=== PATIENT | female | born 1980 | race Caucasian/White ===

== ENCOUNTER 2024-01-10 03:36 | Emergency (ER) | payer OTHER, SELFPAY ==
[2024-01-10 03:45] VITALS: BP 156/86; PULSE 98; RESP 15; TEMP 36.6; O2SAT 100
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
[2024-01-10 04:53] VITALS: BP 150/84; PULSE 96; RESP 15; O2SAT 100
== END 2024-01-10 04:54 | disposition home or self-care (01) ==
PROVIDERS: Emergency Provider Emergency Medicine; PCP Family Medicine
DX: F43.9 Reaction to severe stress, unspecified (principal); M79.7 Fibromyalgia; F51.01 Primary insomnia; F32.9 Major depressive disorder, single episode, unspecified; Z87.891 Personal history of nicotine dependence
CPT/HCPCS: 99281

== ENCOUNTER 2024-01-11 14:10 | Outpatient (CLI) | payer OTHER, SELFPAY ==
[2024-01-11 19:15] LABS: Mean Corpuscular HGB Conc 31.8 g/dl (32-36); Mean Corpuscular Hemoglobin 30.6 pg (26-34); Mean Corpuscular Volume 96.3 fl (80-100); Mean Platelet Volume 10.8 fl (7.4-10.4); Platelet Count Result 374 k/mm3 (150-375); Red Blood Count 4.57 M/mm3 (4.2-5.4); Red Cell Distribution Width 12.7 % (11.5-14.5); White Blood Count 10.3 K/mm3 (4.5-10.0)
[2024-01-11 19:21] LABS: Vitamin D 25 Hydroxy 18.4 ng/mL
[2024-01-11 19:24] LABS: Alanine Aminotransferase 23 U/L (6-35); Albumin Level 4.3 g/dL (3.5-5.1); Alkaline Phosphatase 72 U/L (38-126); Anion Gap 4 mmol/L (8-16); Aspartate Amino Transferase 53 U/L (14-36); Blood Urea Nitrogen 11 mg/dL (7-17); Calcium 9.4 mg/dL (8.4-10.2); Carbon Dioxide 30 mmol/L (22-30); Chloride 105 mmol/L (98-107); Cholesterol 202 mg/dL (0-200); Estimated Glomerular Filt Rate > 60; Glucose 88 mg/dL (65-110); HDL Direct 63 mg/dL; Sodium 139 mmol/L (137-145); Triglycerides 113 mg/dL (<150)
[2024-01-11 19:34] LABS: LDL Cholesterol Direct 109 mg/dL
== END 2024-01-11 14:11 | disposition home or self-care (01) ==
LOC: ANHGOSHLAB 14:12
PROVIDERS: Family Medicine; PCP Family Medicine; Visit Provider Nurse Practitioner
DX: Z00.00 Encounter for general adult medical examination without abnormal findings (principal); F41.8 Other specified anxiety disorders; G25.81 Restless legs syndrome; E66.01 Morbid (severe) obesity due to excess calories; Z79.899 Other long term (current) drug therapy; D64.9 Anemia, unspecified
CPT/HCPCS: 36415; 80053; 80061; 82306; 82728; 84443; 85027

== ENCOUNTER 2024-03-05 07:46 | Outpatient (CLI) | payer OTHER, SELFPAY ==
--- NOTE | 2024-03-06 11:11 | WPDNEUROLOGY ---
Neurology EEG Report General Information Date of Study: 03/05/24 TEST eeg DIAGNOSIS Unspecified convulsions CONDITION OF RECORDING awake drowsy and sleep EEG NUMBER [id number] CLINICAL HISTORY patient reports in the last 2 months she has had 3 episodes of becoming aphasic and shaking of her extremities. Episodes last for about a minute and half. Denies loss of consciousness. Has bit her tongue during the last episode. EEG DESCRIPTION Low-voltage 15 to 18 hertz per 2nd beta activity seen during drowsiness with poor rohini posterior gradient and involving into the mixture of low-voltage beta theta and Alpha activity during sleep. Bilateral symmetrical sleep activity is noted. With intermittent regular EKG artifact. Hyperventilation produced normal and symmetrical buildup. Photic stimulation produced normal drive. Non paroxysmal. Nonfocal. Nonlateralizing. IMPRESSION Normal EEG at this time with no evidence of any paroxysmal abnormalities, clinical correlation recommended as the EEG can be normal even if the patient has seizure disorder,.
== END 2024-03-05 07:47 | disposition home or self-care (01) ==
PROVIDERS: PCP Family Medicine; Visit Provider Nurse Practitioner
DX: R56.9 Unspecified convulsions (principal)
CPT/HCPCS: 95816

== ENCOUNTER 2024-05-09 12:29 | Outpatient (CLI) | payer OTHER, SELFPAY ==
--- NOTE | ~2024-05-09 | MR_ITS ---
MR brain/brain stem wo/w con Ordering provider: Tato Santizo MD History: 43 years Female with . G35 - Multiple sclerosis . Comparison: CT head performed yesterday. Technique: MRI brain was performed with and without contrast. 20 mL of MultiHance was given IV. FINDINGS: BONES: Normal. CRANIOCERVICAL JUNCTION: normal. PITUITARY: Normal. MAJOR INTRACRANIAL VESSELS: Normal flow void. OPTIC NERVES AND CRANIAL NERVES VII AND VIII COMPLEXES: Grossly normal. BRAIN PARENCHYMA AND CSF SPACES: No visible white matter disease. The brainstem and cerebellum are n ormal. No acute or chronic intracranial hemorrhage. No extra axial fluid collections. Diffusion weigh chetan and ADC mapping images reveal no recent ischemia. No midline shift or mass effect. No abnormal co ntrast enhancement. PARANASAL SINUSES: Normal. MASTOIDS: Normal SUPERFICIAL/SURROUNDING SOFT TISSUES: Normal. IMPRESSION: 1. Normal study. 2. No abnormal enhancement. Reviewed, dictated and finalized at location A.
== END 2024-05-09 12:30 | disposition home or self-care (01) ==
LOC: ANHIMG 12:31
PROVIDERS: PCP Family Medicine; Visit Provider Psychiatry & Neurology Neurology
DX: G35 Multiple sclerosis (principal); G40.909 Epilepsy, unspecified, not intractable, without status epilepticus; G43.909 Migraine, unspecified, not intractable, without status migrainosus
CPT/HCPCS: 70553; 93225; 93226; A9577

== ENCOUNTER 2024-12-13 08:58 | Outpatient (CLI) | payer OTHER, SELFPAY ==
--- OUTSIDE RECORDS SUMMARY | 2024-12-13 09:24 | XMS_ITS | Clinical Summary ---
Author Organization [facility] Address [address] [place] [address]. [place], [place] [id number] [place] [id number] Care Team Providers Care Venereal Disease Control Head Name Role Phone None, Provider MD Primary Care Provider Unavaila ble Allergies No known active allergies Medications gabapentin (NEURONTIN) 600 MG tablet Take 1 tablet (600 mg total) by mouth daily. 12/14/2023 Active Social History Tobacco Use Types Packs/Day Years Used Date Smoking Tobacco: Never Smokeless Tobacco: Never Tobacco Cessation:Counseling Given: Not Answered Alcohol Use Standard Drinks/Week Comments Yes 0 (1 standard drink = 0.6 oz pur e alcohol) Comments No Sex and Gender Information Value Date Recorded Sex Assigned at Not on file Legal Sex Female 7:45 AM CLINICAL NURSE [facility]UP[facility]IC[facility] Gender Identity Not on file Sexual Orientation Not on file Last Filed Vital Signs Vital Sign Reading Time Taken Comments Blood Pressure 133/76 01/03/2024 9:00 AM CLINICAL NURSE [facility]CCUPATIONAL MEDICINE Pulse 71 01/03/2024 9:00 AM CLINICAL NURSE OCCUPATIONAL MEDICINE Temperature 36.1 ??C (96.9 ??F) 01/03/2024 7:53 AM CS T Respiratory Rate 23 01/03/2024 9:00 AM CLINICAL NURSE [employer]CCUPATIONAL MEDICINE Oxygen Saturation 94% 01/03/2024 9:00 AM CLINICAL NURSE OCCUPATIONAL MEDICINE Inhaled Oxygen Concentration - - Weight 128 kg (282 lb 2 oz) 01/03/2024 7:[address] Height 172.7 cm (5' 8 ) 01/03/2024 7:53 AM CLINICAL NURSE OCCUPATIONAL MEDICINE Body Mass Index 42.9 01/03/2024 7:53 AM CLINICAL NURSE OCCUPATIONAL MEDICINE Plan of Treatment Health Maintenance Due Date Last Done Comments Cervical Cancer Screening Pa p Smear (Age 30 to 64) Every 3 Years 1981 Annual Physical 1984 Hepatitis C 1999 DTaP, Tdap and Td Vaccines ( 1 - Tdap) 2000 Hepatitis B Vaccines (1 of 3 - 19+ 3-dose series) 2000 Cervical Cancer Screening Pa p with HPV Testing (Age 30 to 64) Every 5 Years 2011 Cervical Cancer Screening with HPV 2011 Mammogram Screening 2021 COVID-19 Vaccine (1 - 2023-2 5 season) 2024 Influenza Adult (#1) 2024 HPV Vaccines Aged Out No longer eligi ble based on patient's age to complete this topic Meningococcal B Vaccine Aged Out No l onger eligible based on patient's age to complete this topic Meningococcal Vaccine Aged Out No teressa scotty eligible based on patient's age to complete this topic Pneumococcal Vaccine: Pediat rics (0 to 5 Years) and At-Risk Patients (6 to 64 Years) Aged Out No longer eligible b ased on patient's age to complete this topic RSV Immunizations Under 20 Months Aged Out No longer eligible based on patient's age to complete this topic Insurance Care Teams Venereal Disease Control Head Relationship Specialty Start Date End Date None, Provider, MD PCP - General UNKNOWN PHYSICIAN SPECIALTY 01/03/24
[2024-12-13 16:26] LABS: Hemoglobin 14.5 g/dL (12.0-15.0); Mean Corpuscular Volume 94.2 fl (80-100); Mean Platelet Volume 10.7 fl (7.4-10.4); Platelet Count Result 320 k/mm3 (150-375); Red Blood Count 4.67 M/mm3 (4.2-5.4); Red Cell Distribution Width 12.5 % (11.5-14.5); White Blood Count 8.1 K/mm3 (4.5-10.0)
[2024-12-13 17:06] LABS: Vitamin D 25 Hydroxy 28.9 ng/mL
[2024-12-13 17:14] LABS: Alanine Aminotransferase 17 U/L (6-35); Albumin Level 4.2 g/dL (3.5-5.1); Alkaline Phosphatase 58 U/L (38-126); Anion Gap 10 mmol/L (4-12); Aspartate Amino Transferase 26 U/L (14-36); Bilirubin,Total 0.7 mg/dL (0.2-1.3); Blood Urea Nitrogen 10 mg/dL (7-17); Carbon Dioxide 25 mmol/L (22-30); Chloride 103 mmol/L (98-107); Cholesterol 196 mg/dL (0-200); Estimated Glomerular Filt Rate > 60; Glucose 81 mg/dL (65-110); HDL Direct 63 mg/dL; Potassium 4.5 mmol/L (3.4-5.0); Sodium 138 mmol/L (137-145); Triglycerides 177 mg/dL (<150)
[2024-12-13 17:18] LABS: LDL Cholesterol Direct 106 mg/dL
== END 2024-12-13 08:59 | disposition home or self-care (01) ==
LOC: ANHGOSHLAB 08:59
PROVIDERS: PCP Family Medicine; Visit Provider Nurse Practitioner
DX: Z00.00 Encounter for general adult medical examination without abnormal findings (principal); E55.9 Vitamin D deficiency, unspecified
CPT/HCPCS: 36415; 80053; 80061; 82306; 84443; 85027

== ENCOUNTER 2025-02-06 07:33 | Outpatient (CLI) | payer OTHER, SELFPAY ==
--- OUTSIDE RECORDS SUMMARY | 2025-02-06 07:39 | XMS_ITS ---
Author Organization [facility] qLearning Address [address] [facility] [address] [place] [address] Care Team Providers Care Pastry Artist Name Role Phone Quita Zee Primary Care Provider Angie Villatoro Unavailable [phone] Allergies Allergen (clinical drug ingredient) Drug/Non Drug Allergy documented on EMR Reaction Allergy Type Onset Date Status venlafaxine Venlafaxine Unknown Drug Allergy Act zee REASON FOR VISIT 6 week f/u, Depression screening positive Medications Medication SIG (Take, Route, Frequency, Duration) Notes Start Date End Date Status levETIRAcetam 750 MG TAKE 2 TABLETS BY MOUTH EVERY 12 HOURS Oral for 60 Days Active Trintellix 10 MG 1 tablet Orally Once a day for 30 days dose increase, cancel 5mg scripts Active traZODone HCl 50 MG 1-2 tablet at bedtime as needed Oral Once a day for 90 days Active Gabapentin 600 MG TAKE 1 TABLET BY MOUTH EVERY DAY AT BEDTIME Oral for 90 Days Active Omeprazole 10 MG TAKE 1 CAPSULE BY MOUTH ONCE DAILY Oral for 90 Days Active Social History Tobacco Use: Social History Observation Description Date Details (start date - stop date) Former Smoker NA - NA Sex Assigned At : Social History Observation Description Sex Assigned At Female Tobacco Control (Standard) Question Answer Notes Tobacco use: Former smoker AUDIT-C (Standard) Question Answer Notes Points 5 Did you have a drink contain ing alcohol in the past year? Yes How often did you have six o r more drinks on one occasion in the past year? Less than monthly (1 point) How many drinks did you have on a typical day when you were drinking in the past year? 5 or 6 drinks (2 points) How often did you have a dri nk containing alcohol in the past year? 2 to 4 times a month (2 points) Vital Signs Blood pressure systolic 134 mm Hg 01/26/20 25 Blood pressure diastolic 81 mm Hg 025 Heart Rate 71 /min 01/25/2025 Weight 264 lbs 01/25/2025 Weight-kg 119.75 kg 01/25/2025 Encounters Encounter Location Date Provider Diagnosis [facility] [address] [facility] [address] [place] [address] 01/25/2025 Angie Umanzor Encounter for screen ing for depression Z13.31 ; Severe episode of recurrent major depressive disorder, without psychotic features F33.2 ; Generalized anxiety disorder F41.1 ; Chronic insomnia F51.04 and Encounter for screening for cardiovascular disorders Z13.6 Assessments Encounter Date Diagnosis (ICD Code) Assessment Notes Treatment Notes Treatment Clinical Notes Section Notes 01/25/2025 Encounter for screening for depression (ICD-10 - Z13.31) 01/25/2025 Severe episode of recurrent major depressive disorder, without psychotic features (ICD-10 - F33.2) Electronic Prior Authorization was requested for Trintellix 5 MG Tablet. Provider can order medication once approval received. 01/25/2025 Generalized anxiety disorder (ICD-10 - F41.1) 01/25/2025 Chronic insomnia (ICD-10 - F51.04) 01/25/2025 Encounter for screening for cardiovascular disorders (ICD-10 - Z13.6) 01/25/2025 Other Increase Trintellix to 10mg daily --monitor for worsening side effects -samples and copay card given Patient educated on all medications including potential benefits, side effects, risks. Educated on proper dosing schedule and importance of compliance. -Assessment and treatment plan reviewed with patient. -Compliance with treatment plan importance discussed. -Discussed the risks/benefits of this medication -Discussed medication side effects. -Contact office if symptoms worsen. -Discussed that it can take up to 6-8 weeks to see full therapeutic effects of psychotropic medications. -Crisis prevention hotline 236. Plan Of Treatment Medication Medication Name Sig Start Date Stop Date Notes Trintellix 10 MG 1 tablet Orally Once a day for 30 days dose increase, cance l 5mg scripts traZODone HCl 50 MG 1-2 tablet at bedtim e as needed Oral Once a day for 90 days Treatment Notes Assessment Notes Severe episode of recurrent major depressive disorder, without psychotic features Electronic Prior Authorization was reque bakari for Trintellix 5 MG Tablet. Provider can order medication once approval received. Other Increase Trintellix to 10mg daily --monitor for worsening side effects -samples and copay card given Patient educated on all medications including potential benefits, side effects, risks. Educated on proper dosing schedule and importance of compliance. Next Appt Details Follow Up: 6 Weeks, Reason: med f/u Provider Name:Angie Umanzor, 02/21/2025 10:45:00 AM, [address], [facility] [address], [place], [address], Progress Notes * Nila ANDERSON LDOB:1979 (44 yo F)Acc No.[id number]:01/25/2025 Patient: Roseanne PARHAMWILLOWNila Jones Provider: STU MASONHNP :1980 A ge:44 Y S ex:Female Date:01/25/2025 Address:[address] [place], [place] [id number] Pcp:Quita Jones [facility] Subjective: * Chief Complaints: * 6 week f/uDepression screening positive * HPI: D epression Screening: MAURY-7 (2018 Edition) F eeling nervous, anxious, or on edge S everal N ot being able to stop or control worrying?Not at all W orrying too much about different things S ever T rouble relaxing N ot at all B eing so restless that it is hard to sit still N ot at all B ecoming easily annoyed or irritable S ever F eeling afraid as if something awful might happen S ever I f you checked any problems, how difficult have they made it for you to do your work, take care of things at home, or get along with other people? S omewhat difficult C [place]-Suicide Severity Rating Scale: Suicide Risk (CSRS-screener) i n the past one month Have you wished you were or wished you could go to sleep and not wake up? N o i n the past one month Have you actually had any thoughts of killing yourself? N o D epression screening: PHQ-9 L ittle interest or pleasure in doing things?Several days F eeling down, depressed, or hopeless S everal T rouble falling or staying asleep, or sleeping too much N ot at all F eeling tired or having little energy S ever days P oor appetite or overeating S ever F eeling bad about yourself or that you are a failure, or have let yourself or your family down S ever T rouble concentrating on things, such as reading the newspaper or watching television S M oving or speaking so slowly that other people could have noticed; or the opposite, being so fidgety or restless that you have been moving around a lot more than usual N ot at all T houghts that you would be better off or of hurting yourself in some way N ot at all T otal Score 6 I nterpretation M ild Depression H istory of Presenting Problem: Medication Side Effects I rregular menstrual cycles; nausea. Anxiety w ith excessive worry, with low energy, which has been long-standing. Depression R ates depression 3/10 with 10 being most severe. Denies SI. . Mood lability n o hx gary. Psychosis n o hx psychosis. Sleep disturbance w ith difficulty falling asleep. Suicidal ideation d enies. Psychotherapy h istory of counseling several years ago . Here for follow up. Trintellix started last apt. Reports I feel a little better . Has noted some nausea and irregular periods since starting the Trintellix. Has not thrown up and noted that eating with the medicine is helpful, nausea is lasting about 20 minutes. Depression is significantly better since starting the Trintellix. Anxiety is slightly better-although continues to overthink the future often. Work is going well, I feel like I have had a better attitude . Feels she is handling the stress well. Sleep is good, some nights she is taking up to 75mg of the Trazodone, getting about 7 hours nightly. Energy is fair. Appetite is good. P ast Psychiatric Hospitalizations: Previous psychiatric hospitalizations P revious Psychiatric Hospitalization N o Past History of Suicidal attempt H ave you ever attempted suicide in the past?No Social hx: . No children. Has 5 pugs. 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 Medical hx: Seizures (keppra) Legal hx: none Past psychiatric hx- Hx ECT/TMS/esketamine: none Past IPBH admissions/IOP/PHP: none Previous suicide attempts: none Previous self-harming: none Previous medications: Venlafaxine, duloxetine, fluoxetine, paxil, sertraline, lexapro, wellbutrin, Viibryd (did well but insurance did not cover). Supplements: B6, B12 Trauma/Abuse: none Substance use hx: denies Nicotine: vape, previous smoker 2014 Alcohol: once weekly- about 6 beer. * ROS: G eneral / Constitutional: Patient denies c hange in appetite, headache, lightheadedness, sleep disturbance, weight gain, weight loss. C ardiovascular: Patient denies p alpitations. G astrointestinal: Patient denies vomiting, constipation. P atient complains of n ausea. N eurologic: Patient denies c onfusion, tic, tremor. P sychiatric: Patient denies a uditory / visual hallucinations, delusions, suicidal thoughts, gary, psychosis, involuntary movements. P atient complains of a nxiety, depressed mood. C nisha Galvin [facility] for details. P erformance Met: N ormal blood pressure reading documented, follow-up not required ( G8783). * Medical History: * Surgical History: * Hospitalization/Major Diagno stic Procedure: n o hx IP admits * Family History: M aternal Uncle: drug use. F ather: alive, None. M aternal Aunt: None. P aternal Aunt: None. P aternal Uncle: None. M other: alive, None. P aternal Grandfather: None. Paternal Grandmother: None. M aternal Grandfather: None. M aternal Grandmother: None. B rother: None. S ister: Anxiety Disorder,Phobias,Major Depressive Episode. S on: None. D aughter: None. 2 sister(s) . . 2 sisters, biological, living. * Social History: T obacco Use: T obacco Control (Standard) T obacco use: F ormer smoker D rug/Alcohol: D rugs H ave you used drugs other than those for medical reasons in the past 12 months? Y es M ethamphetamine? N o C rack? N o L SD? N o E cstacy? N o P rescription opiates? N o M arijuana? Y es K etamine? N o P CP? N o I s there a minor (18 years or younger) at risk at home? N o A re you still using? N o Do you smoke marijuana?: Denies. Do you drink alcohol?: Yes. AUDIT-C (Standard) D id you have a drink containing alcohol in the past year? Y es H ow often did you have six or more drinks on one occasion in the past year? L ess than monthly (1 point) H ow many drinks did you have on a typical day when you were drinking in the past year? 5 or 6 drinks (2 points) H ow often did you have a drink containing alcohol in the past year? 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 Safety issues A re there any firearms in the house? N o S ocial History: H ousejeremy M arital Status: M arried N umber of Adults in household: 2 N umber of Children in Household: 0 L evel of Education: [employer] * Medications: T akinglevETIRAcetam 750 MG Tablet TAKE 2 TABLETS BY MOUTH EVERY 12 HOURS Oral Gabapentin 600 MG Tablet TAKE 1 TABLET BY MOUTH EVERY DAY AT BEDTIME Oral Omeprazole 10 MG Capsule Delayed Release TAKE 1 CAPSULE BY MOUTH ONCE DAILY Oral Trintellix 5 MG Tablet 1 tablet Orally Once a day traZODone HCl 50 MG Tablet 1-2 tablet at bedtime as needed Oral Once a day Taking levETIRAcetam 750 MG Tablet TAKE 2 TABLETS BY MOUTH EVERY 12 HOURS Oral Taking Gabapentin 600 MG Tablet TAKE 1 TABLET BY MOUTH EVERY DAY AT BEDTIME Oral Taking Omeprazole 10 MG Capsule Delayed Release TAKE 1 CAPSULE BY MOUTH ONCE DAILY Oral Taking Trintellix 5 MG Tablet 1 tablet Orally Once a day Taking traZODone HCl 50 MG Tablet 1-2 tablet at bedtime as needed Oral Once a day * Allergies: V enlafaxineno[Allergies Verified] Objective: * Vitals: B P:134/81mm Hg, HR:71/min, Wt:264lbs, Wt-k.75 kg. * Examination: P sychiatry: Appearance: w ell-groomed. Abnormal body movements: n one. Affect / mood: a ppropriate. Attention: g ood. Attitude: c ooperative. Homicidal ideation: n one. Suicidal ideation: n one. Degree of awareness of surroundings: w ithin normal limits.? Delusions: n o. Hallucinations: n o. Insight: g ood. Judgement: g ood. Orientation: a wake, alert and oriented x 3. Perceptual disorders: n o perceptual disorder noted. Psychomotor activity: w ithin normal range. Speech / language: n ormal rate, volume, and articulation (RVR), clear and coherent, appropriate pitch/modulation. Thought content: a ppropriate. Thought process: i ntact. Assessment: * Assessment: 1. S evere episode of recurrent major depressive disorder, without psychotic features - F33.2 (Primary) 2 . E ncounter for screening for depression - Z13.31 3 . G eneralized anxiety disorder - F41.1 4 . C hronic insomnia - F51.04 & #160; 5 . E ncounter for screening for cardiovascular disorders - Z13.6 Plan: * Treatment: 2. C hronic insomnia Continue traZODone HCl Tablet, 50 MG, 1-2 tablet at bedtime as needed, Oral, Once a day, 90 days, 180, Refills 0. 3. O thers Notes: Increase Trintellix to 10mg daily --monitor for worsening side effects -samples and copay card given Patient educated on all medications including potential benefits, side effects, risks. Educated on proper dosing schedule and importance of compliance. Clinical Notes: -Assessment and treatment plan reviewed with patient. -Compliance with treatment plan importance discussed. -Discussed the risks/benefits of this medication -Discussed medication side effects. -Contact office if symptoms worsen. -Discussed that it can take up to 6-8 weeks to see full therapeutic effects of psychotropic medications. -Crisis prevention hotline 825. * Procedure Codes: 9 6127 BEHAV ASSMT W/SCORE & DOCD/STAND [id number] NORMAL BP READING DOC F/U NOT [id number] CLIN DEPRESSION SCREEN [id number] MOST RECENT SYSTOLIC BP < 140MM [id number] MOST RECENT DIASTOLIC BP < 90MM [id number] VISIT COMPLEXITY INHERENT TO ONGOING CARE RELATED TO A PATIENT'S SINGLE, SERIOUS CONDITION OR A COMPLEX CONDITION * Follow Up: 6 Weeks (Reason: med f/u) * Billing Information: * Visit Code: 14773 OFFICE OUTPATIENT VISIT 25 MINUTES DETAILED HISTORY AND EXAM/MODERATE MEDICAL DECISION MAKING. * Procedure Codes: 57667 BEHAV ASSMT W/SCORE & DOCD/STAND INSTRUMENT. G8783 NORMAL BP READING DOC F/U NOT RQR. G8431 CLIN DEPRESSION SCREEN DOC. G8752 MOST RECENT SYSTOLIC BP < 140MM HG. G8754 MOST RECENT DIASTOLIC BP < 90MM HG. G2211 VISIT COMPLEXITY INHERENT TO ONGOING CARE RELATED TO A PATIENT'S SINGLE, SERIOUS CONDITION OR A COMPLEX CONDITION. * Sign off status: Completed true * Provider: ATLI MASON Date: 0 01/25/2025 Generated for Dg zapata/Sofi/Lara on: 0 02/06/2025 07:39 AM CDT History and Physical Notes * HPI (History of Present Illness) Category Sub-Category Detail Notes Category Not es History of Presenting Problem Anxiety with excessive worry, with l ow energy, which has been long-standing Here for follow up. Trintellix started last apt. Reports I feel a little better . Has noted some nausea and irregular periods since starting the Trintellix. Has not thrown up and noted that eating with the medicine is helpful, nausea is lasting about 20 minutes. Depression is significantly better since starting the Trintellix. Anxiety is slightly better-although continues to overthink the future often. Work is going well, I feel like I have had a better attitude . Feels she is handling the stress well. Sleep is good, some nights she is taking up to 75mg of the Trazodone, getting about 7 hours nightly. Energy is fair. Appetite is good. Depression Rates depression 3 0 with 10 being most severe. Denies SI. Suicidal ideation denies Sleep disturbance with difficulty fall ing asleep Psychosis no hx psychosis Mood lability no hx gary Psychotherapy history of jayde murdock several years ago Medication Side Effects Irregular menstr ual cycles; nausea Past Psychiatric Hospitalizations Previous psychiatric hospitalizations Previous Psychiatric Hospitalization: No Social hx: . No children. Has 5 pugs. 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 Medical hx: Seizures (keppra) Legal hx: none Past psychiatric hx- Hx ECT/TMS/esketamine: none Past IPBH admissions/IOP/PHP: none Previous suicide attempts: none Previous self-harming: none Previous medications: Venlafaxine, duloxetine, fluoxetine, paxil, sertraline, lexapro, wellbutrin, Viibryd (did well but insurance did not cover). Supplements: B6, B12 Trauma/Abuse: none Substance use hx: denies Nicotine: vape, previous smoker 2014 Alcohol: once weekly- about 6 beer Past History of Suicidal attempt Have yo u ever attempted suicide in the past: No Depression screening PHQ-9 Little inte rest or pleasure in doing things: Several days Feeling down, depressed, or hopeless: Se veral days Trouble falling or staying asleep, or sl eeping too much: Not at all Feeling tired or having little energy: S everal days Poor appetite or overeating: Several day s Feeling bad about yourself o r that you are a failure, or have let yourself or your family down: Several days Trouble concentrating on thi ngs, such as reading the newspaper or watching television: Several days Moving or speaking so slowly that other people could have noticed; or the opposite, being so fidgety or restless that you have been moving around a lot more than usual: Not at all Thoughts that you would be b be off or of hurting yourself in some way: Not at all Total Score: 6 Interpretation: Mild Depression Depression Screening MAURY-7 (2018 Edition) Feelin g nervous, anxious, or on edge: Several days Not being able to stop or control worryi ng: Not at all Worrying too much about different things : Several days Trouble relaxing: Not at all Being so restless that it is hard to sit still: Not at all Becoming easily annoyed or irritable: Se veral days Feeling afraid as if something awful lili ht happen: Several days If you checked any problems, how difficult have they made it for you to do your work, take care of things at home, or get along with other people?: Somewhat difficult [place]-Suicide Severity Rating Scale Suicide Risk (CSRS-screener) in the past one month Have you wished you were or wished you could go to sleep and not wake up?: No in the past one month Have y ou actually had any thoughts of killing yourself?: No Examination Category Sub-Category Detail Notes Category Not es Psychiatry Appearance: well-groomed Attitude: cooperative Psychomotor activity: within normal rang e Abnormal body movements: none Attention: good Degree of awareness of surroundings: wit hin normal limits Orientation: awake, alert and linda ented x 3 Affect / mood: appropriate Speech / language: normal rate, volume, and articulation (RVR), clear and coherent, appropriate pitch/modulation Insight: good Judgement: good Thought process: intact Thought content: appropriate Perceptual disorders: no perceptual diso rder noted Suicidal ideation: none Homicidal ideation: none Delusions: no Hallucinations: no
--- OUTSIDE RECORDS SUMMARY | 2025-02-06 07:40 | XMS_ITS | Patient Health Record ---
Author Organization [facility] [employer] [facility] Address [address] [facility] [address] [place] [address] Care Team Providers Care Phlebotomy Instructor Name Role Phone Quita Zee Primary Care Provider Angie Villatoro Unavailable [phone] Allergies Allergen (clinical drug ingredient) Drug/Non Drug Allergy documented on EMR Reaction Allergy Type Onset Date Status venlafaxine Venlafaxine Unknown Drug Allergy Act zee Results Component Value Reference Range Notes UDT Reviewed date:12/14/2024 11:01:15 AM Interpretation: Performing Lab: Notes/Report: THC NEG 0 - 50 ng/ml Cocaine NEG 0 - 300 ng/ml Amphetamine NEG 0 - 1000 ng/ml Buprenorphine (BUP) NEG 0 - 10 ng/ml Secobarbital (Bar) NEG 0 - 300 ng/ml Oxazepam (BZO) NEG 0 - 300 ng/ml 9-gjvdwbcvyf-9,6-mzzevbrq-2,3-diphenylpyrrolidine (MEI P) NEG 0 - 300 ng/ml Methamphetamine (MET) NEG 0 - 1000 ng/ml Methylenedioxymethamphetamine (MDMA) NEG 0 - 500 ng/ml Morphine (MOP 300/[id number]) NEG 0 - 300 ng/ml Methadone (MTD) NEG 0 - 300 ng/ml Phencyclidine (PCP) NEG 0 - 25 ng/ml Nortriptyline (TCA) NEG 0 - 1000 ng/ml Oxycodone NEG 0 - 300 ng/ml x NEG 0 - 300 ng/ml Reason For Referral No Information Medications Medication SIG (Take, Route, Frequency, Duration) [...] to 4 times a month (2 points) Problems Problem Type SNOMED Code ICD Code Onset Dates Problem Status W/U Status Risk Notes Problem Generalized anxiety disorder (76583001) Generalized anxiety disorder (F41.1) Active confirmed Problem Severe recurrent major depression without psychotic features (19678153) Severe episode of recurrent major depressive disorder, without psychotic features (F33.2) Active confirmed Problem Chronic insomnia (642173329) Chronic insomnia (F51.04) Active confirmed Vital Signs Heart Rate 71 /min 01/25/2025 Blood pressure diastolic 81 mm Hg 01/25/2025 Weight-kg 119.75 kg 01/25/2025 Blood pressure systolic 134 mm Hg 01/25/2025 Weight 264 lbs 01/25/2025 Encounters Encounter Location Date Provider Diagnosis [facility] [address] [place] [address] 12/14/2024 Angie Umanzor Severe episode of recurrent major depressive disorder, without psychotic features F33.2 ; Generalized anxiety disorder F41.1 and Chronic insomnia F51.04 [facility] [address] [place] [address] 01/25/2025 Angie Umanzor Encounter for screen ing for depression Z13.31 ; Severe episode of recurrent major depressive disorder, without psychotic features F33.2 ; Generalized anxiety disorder F41.1 ; Chronic insomnia F51.04 and Encounter for screening for cardiovascular disorders Z13.6 [facility] [address] [place] [address] 01/25/2025 Angie Umanzor Assessments Encounter Date Diagnosis (ICD Code) Assessment Notes Treatment Notes Treatment Clinical Notes Section Notes 12/14/2024 Severe episode of recurrent major depressive disorder, without psychotic features (ICD-10 - F33.2) Electronic Prior Authorization was requested for Trintellix 5 MG Tablet. Provider can order medication once approval received. 01/25/2025 Encounter for screening for depression (ICD-10 - Z13.31) 12/14/2024 Generalized anxiety disorder (ICD-10 - F41.1) 01/25/2025 Severe episode of recurrent major depressive disorder, without psychotic features (ICD-10 - F33.2) Electronic Prior Authorization was requested for Trintellix 5 MG Tablet. Provider can order medication once approval received. 12/14/2024 Chronic insomnia (ICD-10 - F51.04) 01/25/2025 Generalized anxiety disorder (ICD-10 - F41.1) 01/25/2025 Chronic insomnia (ICD-10 - F51.04) 01/25/2025 Encounter for screening for cardiovascular disorders (ICD-10 - Z13.6) 12/14/2024 Other Start Trintellix 5mg daily for mood, anxiety. Increase Trazodone to 50-100mg qHS PRN for sleep. Patient educated on all medications including potential benefits, side effects, risks. Educated on proper dosing schedule and importance of compliance. Offered counseling, pt declined at this time. 01/25/2025 Other Increase Trintellix to 10mg daily [...] effects of psychotropic medications. -Crisis prevention hotline 998. Plan Of Treatment Next Appt Details Provider Name:Angie Umanzor, 02/21/2025 10:45:00 AM, [address], [facility] [address], [place], [address], Insurance Providers Payer Name Payer Address Payer Phone Subscriber Number Group Number Insured Name Patient Relationship to Insured Coverage Start Date Coverage End Date Umr [address] [address] [place] [address] [id number] Nila Anderson Self - patient is the insured Pending Sale To [facility] Benefit Plan Management [address] [place] [phone] [id number] Nila Anderson Self - patient is the insured Medical (General) History Medical History History ICD Code Dizziness Fibromyalgia MDDR Migraine syndrome Primary insomnia Seizure disorder Past Psychiatric History: Anxiety Disord er,Major Depressive Episode abdominal aortic aneurysm: No atrial fibrillation: No chronic fatigue syndrome: No essential tremor: No hyperlipidemia: Yes hypertension: No Parkinson's disease: No restless leg syndrome: Yes stroke: No subdural hematoma: No type 1 diabetes mellitus: No type 2 diabetes mellitus: No vitamin B12 deficiency: Yes vitamin D deficiency: Yes Hospitalization History Reason Date(Month/Year) no [facility] admits
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
--- OUTSIDE RECORDS SUMMARY | 2025-02-06 07:40 | XMS_ITS | Clinical Summary ---
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 Gender Identity Not on file Sexual Orientation Not on file Last Filed Vital Signs Vital Sign Reading Time Taken Comments Blood Pressure 133/76 01/03/2024 9:00 AM JUVENILE OFFICER Pulse 71 01/03/2024 9:00 AM JUVENILE OFFICER Temperature 36.1 C (96.9 F) 01/03/2024 7:53 AM JUVENILE OFFICER Respiratory Rate 23 01/03/2024 9:00 AM JUVENILE OFFICER Oxygen Saturation 94% 01/03/2024 9:00 AM JUVENILE OFFICER Inhaled Oxygen Concentration - - Weight 128 kg (282 lb 2 oz) 01/03/2024 7:[address] Height 172.7 cm (5' 8 ) 01/03/2024 7:53 AM JUVENILE OFFICER Body Mass Index 42.9 01/03/2024 7:53 AM JUVENILE OFFICER Plan of Treatment Health Maintenance Due Date [...] to complete this topic Insurance Care Teams Special Needs Nanny Relationship Specialty Start Date End Date None, Provider, MD PCP - General UNKNOWN PHYSICIAN SPECIALTY 01/03/24
--- OUTSIDE RECORDS SUMMARY | 2025-02-06 07:40 | XMS_ITS ---
Author Organization [facility] [employer] [facility] Address [facility] [address] [address] Care Team Providers Care Fiberglass Fabricator Name Role Phone Quita Zee Primary Care Provider Angie Villatoro Unavailable [phone] Social History Sex Assigned At : Social History Observation Description Sex Assigned At Female Encounters Encounter Location Date Provider Diagnosis [facility] [employer] [place] [id number] [facility] [address] [address] 01/25/2025 Angie Umanzor Plan Of Treatment Next Appt Details Provider Name:Angie Umanzor, 02/21/2025 10:45:00 AM, [address], [address], [address], Progress Notes * Nila ANDERSON LDOB:1979 (44 yo F)Acc No.[id number]:01/25/2025 Patient: Shiloh POLLARDdustin Jansen :1980 A ge:44 Y S ex:Female Address:[address] [place] [address], [id number] * true * Date: Generated for Printi ng/Faxing/eTransmitting on: 0 02/06/2025 07:39 AM CDT
--- NOTE | 2025-02-06 07:43 | ECHO_ITS ---
Patient Info Name: Nila Anderson Age: 44 years : 1980 Gender: Female Ht: 68 in Wt: 260 lbs BSA: 2.43 m2 HR: 53 bpm Technical Quality: Good Exam Date: 02/06/2025 8:10 AM Exam Location: Echo Lab Patient Status: Outpatient Admit Date: 02/06/2025 Staff Ordering Physician: Usman Sheppard DO Press Department Manager: Kavita Graff RDCS Attending Provider: Usman Sheppard DO Referring Physician: Silver DAVIS; Exam Type: CA echo doppler color flow Study Info Indications R55 - Syncope and collapse Complete two-dimensional, color flow and Doppler transthoracic echocardiogram is performed. Summary 1. Complete two-dimensional, color flow and Doppler transthoracic echocardiogram is performed. 2. Left ventricular chamber dimension is normal. 3. Left ventricular systolic function is normal, estimated at 60-65%. 4. The left ventricular diastolic function is normal. 5. E/e' 9 is minimally elevated. 6. There is trace mitral valve regurgitation. 7. There is trace tricuspid valve regurgitation. 8. No pulmonary hypertension, estimated pulmonary arterial systolic pressure is 28 mmHg. Left Ventricle E/e' 9 is minimally elevated. Left ventricular chamber dimension is normal. Left ventricular systolic function is normal, estimated at 60-65%. The left ventricular diastolic function is normal. Right Ventricle Right ventricular systolic function is normal and with normal TAPSE 2.1 cm. Right ventricular chamber dimension is normal. Left Atria Left atrial chamber dimension is normal. Right Atria Right atrial chamber dimension is normal. Aortic Valve The aortic valve is trileaflet. There is no aortic valve stenosis. There is no aortic valve regurgitation. Pulmonic Valve There is no pulmonic regurgitation. Mitral Valve There is no mitral valve stenosis. There is trace mitral valve regurgitation. Tricuspid Valve There is trace tricuspid valve regurgitation. No pulmonary hypertension, estimated pulmonary arterial systolic pressure is 28 mmHg. Pericardium/Pleural There is no pericardial effusion. Inferior Vena Cava Normal inferior vena cava with >50% collapse upon inspiration consistent with normal right atrial pressure, 5 mmHg. Aorta The aortic root size at the sinus of Valsalva is normal. Left Ventricular Outflow Tract Name Value Normal LVOT 2D LVOT Diameter 1.9 cm LVOT Doppler LVOT Peak Gradient 7 mmHg LVOT Mean Gradient 4 mmHg LVOT VTI 26 cm LVOT VTI/AV VTI Ratio 0.8 LVOT Stroke Volume 78 ml LVOT CO 15.7 l/min LVOT CI 6.5 l/min/m2 Pulmonic Valve Name Value Normal PV Doppler PV Peak Gradient 5 mmHg Mitral Valve Name Value Normal MV Doppler MV Decel Peach 829 cm/s2 MV PHT 42 ms MV Area (PHT) 5.3 cm2 4.0-5.0 MV Diastolic Function MV E Peak Velocity 119 cm/s MV A Peak Velocity 57 cm/s MV E/A 2.1 MV Decel Time 144 ms MV Annular TDI MV E/e' (Septal) 10.6 <=8.0 MV E/e' (Lateral) 9.2 <=8.0 MV E/e' (Average) 9.9 Tricuspid Valve Name Value Normal TV Regurgitation Doppler TR Peak Velocity 238 cm/s TR Peak Gradient 23 mmHg Estimated PAP/RSVP RA Pressure 5 mmHg <=5 PA Systolic Pressure 28 mmHg <36 RV Systolic Pressure 28 mmHg <36 Aorta Name Value Normal Ascending Aorta Ao Root Diameter (MM) 2.7 cm Ao Root Diam Index (MM) 1.1 cm/m2 Aortic Valve Name Value Normal AV Doppler AV Peak Velocity 152 cm/s AV Peak Gradient 9 mmHg AV Mean Gradient 5 mmHg AV VTI 33 cm AV Area (Cont Eq VTI) 2.4 cm2 >=3.0 AV Area (Cont Eq Usman) 2.6 cm2 AV Regurgitation 2D LVOT Area 3.0 cm2 Ventricles Name Value Normal LV Dimensions 2D/MM IVS Diastolic Thickness (2D) 1.0 cm 0.6-1.0 LVID Diastole (2D) 5.3 cm 3.8-5.2 LVIW Diastolic Thickness (2D) 1.0 cm 0.6-0.9 LVID Systole (2D) 3.2 cm 2.2-3.5 LVOT Diameter 1.9 cm LV Mass (2D Cubed) 195.39 g 67.00-162.00 LV Mass Index (2D Cubed) 80 g/m2 43-95 Relative Wall Thickness (2D) 0.37 LV Fractional Shortening/Ejection Fraction 2D/MM LV Fractional Shortening (2D) 39 % 27-45 LV EF (2D Teicholz) 69 % 54-74 LV Diastolic Volume (4C MOD) 131 ml LV EF (4C MOD) 64 % LV Diastolic Volume (2C MOD) 123 ml LV EF (2C MOD) 58 % LV Diastolic Volume (BP MOD) 128 ml 46-106 LV Diastolic Volume Index (BP MOD) 53 ml/m2 29-61 LV Systolic Volume (BP MOD) 50 ml 14-42 LV Systolic Volume Index (BP MOD) 21 ml/m2 8-24 LV EF (BP MOD) 61 % 54-74 LV Diastolic Length (4C) 8.3 cm LV Systolic Length (4C) 7.1 cm LV Stroke Volume (4C MOD) 84 ml Atria Name Value Normal LA Dimensions LA Dimension (MM) 3.5 cm 2.7-3.8 LA Volume (4C A-L) 53 ml LA Volume (BP A-L) 58 ml RA Dimensions RA Area (4C) 17.7 cm2 <=18.0 Report Signatures
--- NOTE | 2025-02-06 07:43 | EST_ITS ---
Patient Info Name: Nila Anderson Age: 44 years : 1980 Gender: Female Ht: 68 in Wt: 216 lbs BSA: 2.20 m2 HR: 55 bpm BP: 111 / 79 mmHg Exam Date: 02/06/2025 8:44 AM Exam Location: Echo Lab Patient Status: Outpatient Admit Date: 02/06/2025 Staff Ordering Physician: Usman Sheppard DO Attending Provider: Usman Sheppard DO Exercise Technologist: Adrianna Davidson RDCS Exercise Physician: Usman Sheppard DO Exam Type: CA stress test treadmill Study Info A treadmill exercise stress test was performed. Summary 1. 1. Negative Gigi exercise stress test for ischemic ST changes by ECG criteria. 2. 2. Reduced functional capacity, achieving 7 METs of workload. 3. 3. Appropriate HR response to exercise. 4. 4. Appropriate HR recovery at 1 minute post exercise. 5. 5. No imaging with stress testing. 6. 6. Patient informed of the above results. Protocol: Gigi Stress ECG Details Stage: REST Duration (min): 1 min : 13 sec Speed (mph): 0.0 Grade (%): 0 HR (bpm): 54 SBP (mmHg): 111 DBP (mmHg): 79 METS: --- Stage: REST Duration (min): 6 min : 30 sec Speed (mph): 0.0 Grade (%): 0 HR (bpm): --- SBP (mmHg): 111 DBP (mmHg): 79 METS: --- Stage: STAGE 1 Duration (min): 1 min : 0 sec Speed (mph): 1.7 Grade (%): 10 HR (bpm): 103 SBP (mmHg): 111 DBP (mmHg): 79 METS: --- Stage: STAGE 1 Duration (min): 2 min : 0 sec Speed (mph): 1.7 Grade (%): 10 HR (bpm): 123 SBP (mmHg): 111 DBP (mmHg): 79 METS: --- Stage: STAGE 1 Duration (min): 3 min : 0 sec Speed (mph): 1.7 Grade (%): 10 HR (bpm): 125 SBP (mmHg): 154 DBP (mmHg): 95 METS: --- Stage: STAGE 2 Duration (min): 1 min : 0 sec Speed (mph): 2.5 Grade (%): 12 HR (bpm): 135 SBP (mmHg): 154 DBP (mmHg): 95 METS: --- Stage: STAGE 2 Duration (min): 2 min : 0 sec Speed (mph): 2.5 Grade (%): 12 HR (bpm): 159 SBP (mmHg): 154 DBP (mmHg): 95 METS: --- Stage: STAGE 2 Duration (min): 3 min : 0 sec Speed (mph): 2.5 Grade (%): 12 HR (bpm): 165 SBP (mmHg): 154 DBP (mmHg): 95 METS: --- Stage: STAGE 3 Duration (min): 0 min : 2 sec Speed (mph): 3.4 Grade (%): 14 HR (bpm): 156 SBP (mmHg): 154 DBP (mmHg): 95 METS: --- Stage: RECOVERY Duration (min): 0 min : 57 sec Speed (mph): 0.0 Grade (%): 0 HR (bpm): 127 SBP (mmHg): 174 DBP (mmHg): 80 METS: --- Stage: RECOVERY Duration (min): 1 min : 57 sec Speed (mph): 0.0 Grade (%): 0 HR (bpm): 91 SBP (mmHg): 174 DBP (mmHg): 80 METS: --- Stage: RECOVERY Duration (min): 2 min : 57 sec Speed (mph): 0.0 Grade (%): 0 HR (bpm): 86 SBP (mmHg): 174 DBP (mmHg): 80 METS: --- Stage: RECOVERY Duration (min): 3 min : 32 sec Speed (mph): 0.0 Grade (%): 0 HR (bpm): 83 SBP (mmHg): 131 DBP (mmHg): 77 METS: --- Peak HR: 166 bpm Rest Sys BP: 111 mmHg Peak Sys BP: 174 mmHg Max Pred HR: 177 bpm % Max Pred HR: 94 % Target HR: 150 bpm Max RPP: 28,884 bpm*mmHg Taylor Score: 3 Termination Reason: Reached target heart rate or workload Cardiac Symptoms: Shortness of breath Max ST Seg Deviation: 0.70 mm Total Time: 6 min : 2 sec Rest Lorenzo BP: 79 mmHg Peak Lorenzo BP: 80 mmHg Angina Score: None Total METS: 7.1 Resting ECG Sinus rhythm, consider anterior infarct, PVC's. Stress ECG No ST changes. Arrhythmias PVC's. Report Signatures
== END 2025-02-06 07:34 | disposition home or self-care (01) ==
PROVIDERS: PCP Family Medicine; Visit Provider Internal Medicine Cardiovascular Disease
DX: R55 Syncope and collapse (principal); R07.9 Chest pain, unspecified
CPT/HCPCS: 93017; 93306

== ENCOUNTER 2025-05-08 09:45 | Outpatient (CLI) | payer OTHER, SELFPAY ==
[2025-05-08 19:36] LABS: Vitamin D 25 Hydroxy 22.1 ng/mL
[2025-05-08 19:37] LABS: Alanine Aminotransferase 20 U/L (6-35); Alkaline Phosphatase 52 U/L (38-126); Anion Gap 6 mmol/L (4-12); Aspartate Amino Transferase 39 U/L (14-36); Bilirubin,Total 0.3 mg/dL (0.2-1.3); Blood Urea Nitrogen 12 mg/dL (7-17); Calcium 8.7 mg/dL (8.4-10.2); Carbon Dioxide 26 mmol/L (22-30); Chloride 106 mmol/L (98-107); Cholesterol 217 mg/dL (0-200); Estimated Glomerular Filt Rate > 60; Glucose 95 mg/dL (65-110); HDL Direct 71 mg/dL; Potassium 4.8 mmol/L (3.4-5.0); Sodium 138 mmol/L (137-145); Total Protein 7.4 g/dL (6.3-8.2); Triglycerides 97 mg/dL (<150)
[2025-05-08 19:48] LABS: LDL Cholesterol Direct 113 mg/dL
[2025-05-09 10:03] LABS: Levetiracetam Keppra 45.4 mcg/mL (6.0-46.0)
== END 2025-05-08 09:46 | disposition home or self-care (01) ==
LOC: ANHGOSHLAB 09:46
PROVIDERS: PCP Family Medicine; Visit Provider Nurse Practitioner
DX: E55.9 Vitamin D deficiency, unspecified (principal); G40.909 Epilepsy, unspecified, not intractable, without status epilepticus; E78.5 Hyperlipidemia, unspecified; F51.01 Primary insomnia; Z79.899 Other long term (current) drug therapy
CPT/HCPCS: 36415; 80053; 80061; 80177; 82306; 84443

== ENCOUNTER 2025-08-30 12:38 | Outpatient (CLI) | payer OTHER, SELFPAY ==
--- OUTSIDE RECORDS SUMMARY | 2025-08-30 12:52 | XMS_ITS | Clinical Summary ---
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 Gender Identity Not on file Sexual Orientation Not on file Last Filed Vital Signs Vital Sign Reading Time Taken Comments Blood Pressure 133/76 01/03/2024 9:00 AM ADVERTISING PHOTOGRAPHER Pulse 71 01/03/2024 9:00 AM ADVERTISING PHOTOGRAPHER Temperature 36.1 C (96.9 F) 01/03/2024 7:53 AM ADVERTISING PHOTOGRAPHER Respiratory Rate 23 01/03/2024 9:00 AM ADVERTISING PHOTOGRAPHER Oxygen Saturation 94% 01/03/2024 9:00 AM ADVERTISING PHOTOGRAPHER Inhaled Oxygen Concentration - - Weight 128 kg (282 lb 2 oz) 01/03/2024 7:[address] Height 172.7 cm (5' 8) 01/03/2024 7:53 AM ADVERTISING PHOTOGRAPHER Body Mass Index 42.9 01/03/2024 7:53 AM ADVERTISING PHOTOGRAPHER Plan of Treatment Health Maintenance Due Date Last Done Comments Cervical Cancer Screening Pa p Smear (Age 30 to 64) Every 3 Years 1980 Annual Physical 1984 Hepatitis C 1999 DTaP, Tdap and Td Vaccines ( 1 - Tdap) 2000 Hepatitis B Vaccines (1 of 3 - 19+ 3-dose series) 2000 HPV Vaccines (1 - 3-dose SCD M series) 2008 Cervical Cancer Screening Pa p with HPV Testing (Age 30 to 64) Every 5 Years 2011 Cervical Cancer Screening with HPV 2011 Mammogram Screening 2021 COVID-19 Vaccine (1 - 2023-2 5 season) 2025 Influenza Adult (#1) 2025 Hepatitis A Vaccines Aged Out No long er eligible based on patient's age to complete this topic Meningococcal B Vaccine Aged Out No l onger eligible based on patient's age to complete this topic Meningococcal Vaccine Aged Out No teressa scotty eligible based on patient's age to complete this topic Pneumococcal Vaccine: Pediat rics (0 to 5 Years) and At-Risk Patients (6 to 49 Years) Aged Out No longer eligible b ased on patient's age to complete this topic RSV Immunizations Under 20 Months Aged Out No longer eligible based on patient's age to complete [place] [address] Care Teams Factory Machine Computer Operator Relationship Specialty Start Date End Date None, Provider, PCP - General UNKNOWN PHYSICIAN SPECIALTY 01/03/24
--- OUTSIDE RECORDS SUMMARY | 2025-08-30 12:53 | XMS_ITS | Patient Health Record ---
Author Organization [facility] Address [address] [facility] [address] [place] [address] Care Team Providers Care Premium Auditor Name Role Phone Quita Zee Primary Care Provider Angie Baugh Unavailable [phone] Allergies Allergen (clinical drug ingredient) Drug/Non Drug [...] Oxazepam (BZO) NEG 0 - 300 ng/ml 6-pglzcyjxxz-8,4-fhhjtuiw-4,3-diphenylpyrrolidine (MEI P) NEG 0 - 300 ng/ml Methamphetamine (MET) NEG 0 - 1000 ng/ml Methylenedioxymethamphetamine (MDMA) NEG 0 - 500 ng/ml Morphine (MOP 300/RTC9221) NEG 0 - 300 ng/ml Methadone (MTD) NEG 0 - 300 ng/ml Phencyclidine (PCP) NEG 0 - 25 ng/ml Nortriptyline (TCA) NEG 0 - 1000 ng/ml Oxycodone NEG 0 - 300 ng/ml x NEG 0 - 300 ng/ml Reason For Referral No Information Medications Medication SIG (Take, Route, Frequency, Duration) Notes Start Date End Date Status traZODone HCl 50 MG Tablet 1-2 tablet at bedtime as needed Oral Once a day; Duration: 90 days Active Trintellix 10 MG Tablet 1 tablet Orally Once a day; Duration: 90 days pt has co-pay card to bring down co-pay cost. co-pay card may be used with commercial insurance plans, please run card. Active levETIRAcetam 750 MG Tablet TAKE 2 TABLETS BY MOUTH EVERY 12 HOURS Oral; Duration: 60 Days Active Gabapentin 600 MG Tablet TAKE 1 TABLET BY MOUTH EVERY DAY AT BEDTIME Oral; Duration: 90 Days Active Omeprazole 10 MG Capsule Delayed Release TAKE 1 CAPSULE BY MOUTH ONCE DAILY Oral; Duration: 90 Days Active Social History Tobacco Use: Social History Observation Description Date Details (start date - stop date) Former Smoker NA - NA Sex Assigned At : Social History Observation Description Sex Assigned At Female Social History Miscellaneous: Social Info Question Answer Notes Safety issues: Are there any firearms in the house? No Social History Social Info Question Answer Notes Household: Marital Status: Number of Adults in household: 2 Number of Children in Household: 0 Level of Education: Finished High School Drug/Alcohol: Social Info Question Answer Notes Drugs Have you used drugs other than those for medical reasons in the past 12 months? Yes Methamphetamine? No Crack? No LSD? No Ecstacy? No Prescription opiates? No Marijuana? Yes Ketamine? No PCP? No Is there a minor (18 years or younger) at risk at home? No Are you still using? No AUDIT-C (Standard) Points 5 Did you have a drink contain ing alcohol in the past year? Yes How often did you have six or more drinks on one occasion in the past year? Less than monthly (1 point) How many drinks did you have on a typical day when you were drinking in the past year? 5 or 6 drinks (2 points) How often did you have a drink containing alcohol in the past year? 2 to 4 times a month (2 points) Tobacco Use: Social Info Question Answer Notes Tobacco Control (Standard) Tobacco use: Former smoker How long has it been since you last smoked? 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 Den ies Do you drink alcohol? Yes Problems Problem Type SNOMED Code ICD Code Onset Dates Problem Status W/U Status Risk Notes Problem Generalized anxiety disorder (54113426) Generalized anxiety disorder (F41.1) Active confirmed Problem Severe recurrent major depression without psychotic features (63951404) Severe episode of recurrent major depressive disorder, without psychotic features (F33.2) Active confirmed Problem Chronic insomnia (913652871) Chronic insomnia (F51.04) Active confirmed Vital Signs Heart Rate 62 /min 02/21/2025 Blood pressure diastolic 85 mm Hg 02/21/2025 Weight-kg 117.94 kg 02/21/2025 Blood pressure systolic 130 mm Hg 02/21/2025 Weight 260 lbs 02/21/2025 Encounters Encounter Location Date Provider Diagnosis [facility] [employer] [place] [address] [address] 12/14/2024 Angie Blue Severe episode of recurrent major depressive disorder, without psychotic features F33.2 ; Generalized anxiety disorder F41.1 and Chronic insomnia F51.04 [facility] [place] [address] [address] 01/25/2025 Angie Blue Encounter for screen ing for depression Z13.31 ; Severe episode of recurrent major depressive disorder, without psychotic features F33.2 ; Generalized anxiety disorder F41.1 ; Chronic insomnia F51.04 and Encounter for screening for cardiovascular disorders Z13.6 [facility] [place] [address] [facility] [address] [address] 02/21/2025 Angiechristiano Blue Encounter for screen ing for depression Z13.31 ; Encounter for screening for cardiovascular disorders Z13.6 ; Severe episode of recurrent major depressive disorder, without psychotic features F33.2 ; Generalized anxiety disorder F41.1 and Chronic insomnia F51.04 [facility] [place] [address] [address] 07/01/2025 Angiechristiano Blue Severe episode of recurrent major depressive disorder, without psychotic features F33.2 ; Generalized anxiety disorder F41.1 and Chronic insomnia F51.04 [facility] [place] [address] [address] 01/25/2025 Angie Blue [facility] [place] [address] [address] 06/18/2025 Angie Blue Severe episode of recurrent major depressive disorder, without psychotic features F33.2 Assessments Encounter Date Diagnosis (ICD Code) Assessment Notes Treatment Notes Treatment Clinical Notes Section Notes 12/14/2024 Severe episode of recurrent major depressive disorder, without psychotic features (ICD-10 - F33.2) Electronic Prior Authorization was requested for Trintellix 5 MG Tablet. Provider can order medication once approval received. 01/25/2025 Encounter for screening for depression (ICD-10 - Z13.31) 12/14/2024 Generalized anxiety disorder (ICD-10 - F41.1) 02/21/2025 Encounter for screening for depression (ICD-10 - Z13.31) 07/01/2025 Severe episode of recurrent major depressive disorder, without psychotic features (ICD-10 - F33.2) SSRI/SNRI side effects discussed including but not limited to, gastric upset, nausea, vomiting, diarrhea and/or constipation, weight changes, sexual side effects including loss of libido, increased suicidal thoughts/behavio rs in children and young adults, and serotonin syndrome. 06/18/2025 Severe episode of recurrent major depressive disorder, without psychotic features (ICD-10 - F33.2) Electronic Prior Authorization was requested for Trintellix 10 MG Tablet. Provider can order medication once approval received. 07/01/2025 Generalized anxiety disorder (ICD-10 - F41.1) 02/21/2025 Encounter for screening for cardiovascular disorders (ICD-10 - Z13.6) 01/25/2025 Severe episode of recurrent major depressive disorder, without psychotic features (ICD-10 - F33.2) Electronic Prior Authorization was requested for Trintellix 5 MG Tablet. Provider can order medication once approval received. 12/14/2024 Chronic insomnia (ICD-10 - F51.04) 01/25/2025 Generalized anxiety disorder (ICD-10 - F41.1) 02/21/2025 Severe episode of recurrent major depressive disorder, without psychotic features (ICD-10 - F33.2) SSRI/SNRI side effects discussed including but not limited to, gastric upset, nausea, vomiting, diarrhea and/or constipation, weight changes, sexual side effects including loss of libido, increased suicidal thoughts/behavio rs in children and young adults, and serotonin syndrome. 07/01/2025 Chronic insomnia (ICD-10 - F51.04) 01/25/2025 Chronic insomnia (ICD-10 - F51.04) 02/21/2025 Generalized anxiety disorder (ICD-10 - F41.1) 01/25/2025 Encounter for screening for cardiovascular disorders (ICD-10 - Z13.6) 02/21/2025 Chronic insomnia (ICD-10 - F51.04) 12/14/2024 Other [...] effects of psychotropic medications. -Crisis prevention hotline 988. 02/21/2025 Other Continue current medications. -refills sent in. Patient educated on all medications including potential [...] effects of psychotropic medications. -Crisis prevention hotline 988. 07/01/2025 Other Stable on current medication regimen, continue at current doses. -Refills sent in today -No concerns today Patient educated on all medications including potential [...] therapeutic effects of psychotropic medications. -Crisis prevention [facility] 988. Plan Of Treatment Next Appt Details Provider Name:Angie escobar, 10/21/2025 08:45:00 AM, [address], [address], [place], [address], Insurance Providers Payer Name Payer Address Payer Phone Subscriber Number Group Number Insured Name Patient Relationship to Insured Coverage Start Date Coverage End Date Umr [address] [address] [place] [address] [id number] Nila Anderson Self - patient is the insured [facility] Plan Management [address] [place] [phone] [id number] Nila Anderson Self - patient is the insured Medical (General) History Medical History History ICD Code Dizziness Fibromyalgia MDDR Migraine syndrome Primary insomnia Seizure disorder Past Psychiatric History: Anxiety Disord er,Major Depressive Episode undefined abdominal aortic aneurysm: No atrial fibrillation: No chronic fatigue syndrome: No essential tremor: No hyperlipidemia: Yes hypertension: No Parkinson's disease: No restless leg syndrome: Yes stroke: No subdural hematoma: No type 1 diabetes mellitus: No type 2 diabetes mellitus: No vitamin B12 deficiency: Yes vitamin D deficiency: Yes Hospitalization History Reason Date(Month/Year) no hx IP admits
--- NOTE | 2025-09-01 10:14 | P.NEURO_ITS ---
Neurology EEG Report General Information Date of Study: 08/30/25 TEST EEG DIAGNOSIS epilepsy CONDITION OF RECORDING awake, drowsy and asleep. EEG NUMBER [id number] CLINICAL HISTORY [age] was old female with history of migraines who is being evaluated for epilepsy complains of lack of sleep and gives history of ears ringing very dizzy, then freezing up with inability to talk or move and bruising left upper extremity in a flexed and curl of motion dose of air of what is going on, noted to have 1 occurrence at the bedside by the pollution control technician and facial muscle twitching on the left side lasting for about 1 to 3 minutes. Postictally patient feels shaky and scared 81 to happen again or she can tell what just happened. She had an episode this month where an episode happened while she was sleeping and when she woke up her left upper extremity was flexed reports noting through her nose which lasted for 1minute or more her worst episode has lasted for 3minutes where she stops breathing fell on the ground and lost some memory of the event. EEG DESCRIPTION Whole record consists of low-voltage 15 to 21 hertz per 2nd beta activity admixed with multiple movement artifacts. Hyperventilation produced poor buildup with no paroxysmal activity low-voltage beta activity seen diffusely in drowsiness followed by bilateral symmetrical sleep activity. Non paroxysmal. Nonfocal. Nonlateralizing. IMPRESSION No significant abnormalities noted in this tracing. Clinical correlation recommended.
== END 2025-08-30 12:39 | disposition home or self-care (01) ==
PROVIDERS: PCP Nurse Practitioner; Visit Provider Psychiatry & Neurology Neurology
DX: G40.909 Epilepsy, unspecified, not intractable, without status epilepticus (principal); G43.909 Migraine, unspecified, not intractable, without status migrainosus
CPT/HCPCS: 95816

== ENCOUNTER 2025-10-24 07:31 | Outpatient (CLI) | payer OTHER, SELFPAY | END 2025-10-24 07:32 | disposition home or self-care (01) | LOC: ANHLAB 07:31 | PROVIDERS: PCP Family Medicine; Visit Provider Psychiatry & Neurology Neurology | DX: G25.81 Restless legs syndrome (principal); G43.909 Migraine, unspecified, not intractable, without status migrainosus; G40.909 Epilepsy, unspecified, not intractable, without status epilepticus | CPT/HCPCS: 80177 ==